=== PATIENT | female | born 1955 | race Caucasian/White ===

== ENCOUNTER 2018-11-13 09:37 | Inpatient (IN) ==
[2018-11-13 10:31] LABS: BASO# 0.07 X1000 (0.0-0.2); EOS# 1.41 X1000 (0.0-0.7); EOS% 19.8 % (0.0-10.0); HEMOGLOBIN 13.4 g/dL (12.0-16.0); LYMPH# 1.67 X1000 (1.2-3.4); LYMPH% 23.4 % (20.5-51.1); MCH 33.4 PG (27-31); MCHC 34.4 g/dL (33-37); MCV 97.3 FL (81-99); MONO# 0.56 X1000 (0.11-0.59); MONO% 7.9 % (1.7-9.3); MPV 9.9 FL (7.4-10.4); NEUT# 3.42 X1000 (1.4-6.5); NEUT% 47.9 % (42.2-75.2); PLT 270 X1000 (130-400); RBC 4.01 XMIL (4.2-5.4); RDW 13.1 % (11.5-14.5); WBC 7.13 X1000 (4.8-10.8)
--- NOTE | 2018-11-13 10:36 | Diag Imaging Result Doc PS360 ---
EXAM: CHEST-1 VIEW HISTORY: Possible sepsis TECHNIQUE: Portable upright chest COMPARISON: None. FINDINGS: The lungs are well expanded. The heart is not enlarged. The vessels are not distended. There are no infiltrates. No effusion identified. Mild scoliosis. IMPRESSION: No pneumonia. Electronically signed by Mati Spencer 11/13/2018 10:34 AM
[2018-11-13] MEDS ORDERED: DUONEB (A & A) INH ONE (10:44)
[2018-11-13] MEDS ORDERED: SOLU-MEDROL IV ONE (10:45)
[2018-11-13 10:46] LABS: INR 0.86; PROTIME 12.4 Seconds (11.0-16.0)
[2018-11-13 10:47] LABS: PTT 30.8 Seconds (22.3-41.8)
[2018-11-13 10:57] LABS: AGAP 15; ALB/GLOB RATIO 1.7; ALBUMIN 4.7 g/dL (3.5-5.0); ALKALINE PHOSPHATASE 74 U/L (32-104); BUN 11 mg/dL (8-22); CHLORIDE 97 mmol/L (98-107); CK PROFILE 152 U/L (24-173); COSMO 271; CREATININE 0.9 mg/dL (0.5-0.9); ESTIMATED GFR > 60; GLUCOSE 132 mg/dL (70-104); GOT 18 U/L (10-30); GPT 17 U/L (10-36); POTASSIUM 4.2 mmol/L (3.5-5.1); SODIUM 135 mmol/L (136-145); TCO2 23 mmol/L (25-35); TOTAL BILIRUBIN 0.46 mg/dL (0.20-1.00); TOTAL PROTEIN 7.4 g/dL (6.3-8.3)
[2018-11-13 11:32] LABS: URINE SOURCE CLEAN CATCH
[2018-11-13 11:41] LABS: BILIRUBIN URINE NEGATIVE (NEGATIVE); BLOOD URINE NEGATIVE (NEGATIVE); COLOR YELLOW; GLUCOSE URINE NEGATIVE (NEGATIVE); KETONE URINE NEGATIVE (NEGATIVE); LEUKOCYTES URINE NEGATIVE (NEGATIVE); NITRITE URINE NEGATIVE (NEGATIVE); PH URINE 5.5; PROTEIN URINE NEGATIVE (NEGATIVE); SP GRAVITY URINE 1.008; TURBIDITY URINE CLEAR (CLEAR); UROBILINOGEN URINE NORMAL (NORMAL)
[2018-11-13 11:43] LABS: UR EPITHELIAL CELLS <10 /HPF (<10); URINE BACTERIA 1+ /HPF; URINE RBC <10 /HPF (<10); URINE WBC <10 /HPF (<10)
--- NOTE | 2018-11-13 12:13 | Diag Imaging Result Doc PS360 ---
EXAM: CT ANGIOGRM PULMONARY ARTERIES HISTORY: sob TECHNIQUE: CT chest with intravenous contrast. Pulmonary arterial protocol with MIP images. COMPARISON: None. FINDINGS: Normal opacification of the pulmonary arteries and their major branches. No thoracic aortic aneurysm or dissection. No cardiomegaly. There calcified mediastinal and hilar lymph nodes with granuloma. No pleural effusions. No consolidation. No bronchiectasis. IMPRESSION: No pulmonary emboli. There is evidence of a prior granulomatous infection. This exam was performed using automated exposure control, adjustment of mA or kV according to patient size, and/or use of iterative reconstruction technique. Electronically signed by Mati Spencer 11/13/2018 12:10 PM
[2018-11-13 13:03] LABS: BLOOD TYPE ARTERIAL; SAMPLE BLOOD
[2018-11-13 13:04] LABS: ALLEN TEST YES; BE -0.7 mmoll (-3.0-3.0); HCO3-(ACT) 24.3 mmoll (20.0-26.0); METHB 1.2 % (0.0-1.5); MODALITY ROOM AIR; O2(CT) 16.7 mL/dL (15.0-23.0); O2HB 92.1 % (95.0-99.0); PCO2(98.6) 36 mmHg (35-45); PO2(98.6) 64 mmHg (60-100); THB 12.9 g/dL (11.5-17.4); pH(98.6) 7.42 (7.35-7.45)
--- NOTE | 2018-11-13 14:49 | EKG Report ---
Test Performed on : 11/13/2018 10:27:58 AM Test Reason : ED. NO EKG ORDER FOR MUSE Blood Pressure : / mmHG Vent. Rate : 097 BPM Atrial Rate : 097 BPM P-R Int : 162 ms QRS Dur : 074 ms QT Int : 356 ms P-R-T Axes : -12 -20 005 degrees QTc Int : 452 ms Normal sinus rhythm. Nonspecific ST abnormality Abnormal ECG No previous ECGs available Unconfirmed Result
--- NOTE | 2018-11-13 15:51 | PROVIDER DOCUMENTATION ---
This chart was entered by Sierra Ribeiro Scribe, acting as scribe for Keenan Arguelles MD. HPI-Respiratory General - General Chief Complaint: SEPSIS ALERT - D Stated Complaint: SOB/WHEEZING Time Seen by Provider: 11/13/18 10:31 Source: patient Allergies/Adverse Reactions: Patient Allergies Allergy/AdvReac Type Severity Reaction Status Date / Time No Known Allergies Allergy Verified 11/13/18 11:20 Home Medications: Home Medication List Medication Instructions Recorded Confirmed Last Taken Type Clonazepam [Klonopin] 0.5 mg PO DAILY 11/13/18 11/13/18 Unknown History Lisinopril/Hydrochlorothiazide 1 ea PO DAILY 11/13/18 11/13/18 Unknown History [Lisinopril-Hctz 10-12.5 mg Tab] Lubiprostone [Amitiza] 8 microgm PO BID 11/13/18 11/13/18 Unknown History Pantoprazole [Protonix] 40 mg PO DAILY 11/13/18 11/13/18 Unknown History Ranitidine HCl [Zantac] 300 mg PO HS 11/13/18 11/13/18 Unknown History - History of Present Illness-Resp Nature of Presenting Problem: Patient is a 62 year old female who presents with shortness of breath, cough, nasal drainage, and wheezing that has been present intermittently for 2 months. Patient states she has had numerous rounds of steroids, antibiotics and breathing treatments. Does not report fever. States history of COPD, HTN and GERD. Quality of Pain: reports: tightness Severity in ED: reports: mild Onset/Duration: reports: other (2 months) Timing: reports: still present, intermittent Cough Quality/Degree: reports: moderate, productive cough, sputum (brown) Associated Symptoms: reports: cough, nasal drainage, shortness of breath, wheezing. denies: fever/chills, lightheadedness Similar Symptoms Previously?: Yes Recently seen or treated by another doctor?: Yes Review of Systems - Adult - REVIEW OF SYSTEMS - ADULT Constitutional: reports: no symptoms reported. denies: chills, fever, fatique Eyes: reports: no symptoms reported Ears, Nose, Mouth & Throat: reports: see HPI, sinus problem (drainage). denies: ear pain, nose pain, throat pain Cardiovascular: reports: no symptoms reported Respiratory: reports: see HPI, cough, shortness of breath, wheezing. denies: hemoptysis Gastrointestinal: reports: no symptoms reported Genitourinary: reports: no symptoms reported Musculoskeletal: reports: no symptoms reported Integumentary: reports: no symptoms reported Neurological: reports: no symptoms reported Psychiatric: reports: no symptoms reported Endocrine: reports: no symptoms reported Hematologic/Lymphatic: reports: no symptoms reported Allergic/Immunologic: reports: no symptoms reported All Other Systems: Reviewed and Negative Past History - Adult - PAST MEDICAL HISTORY-ADULT Review of Records: reports: Old Records Reviewed, Nursing Assessment Review, Med ications Reviewed, Social history reviewed & non-contributory. Major Childhood Illnesses: reports: denies history Cardiovascular: reports: HTN Respiratory: reports: COPD Gastrointestinal: reports: GERD Obstetrical/Gynecological: reports: denies history Genitourinary: reports: denies history Musculoskeletal: reports: denies history Neurological: reports: denies history Psychiatric: reports: denies history Endocrine/Immune: reports: denies history Other Conditions: reports: denies history - PRIOR SURGERIES/PROCEDURES Surgical/Procedure History: reports: reviewed, not pertinent - IMMUNIZATION STATUS Childhood Immunizations: See Nurse Assessment Flu Vaccine: See Nurse Assessment - FAMILY HISTORY Family History: reviewed, not pertinent - SOCIAL HISTORY Smoking: quit less than 1 year, cigarettes Substance Use: denies Living Situation: family Physical Exam-General - PHYSICAL EXAM-ADULT Initial Vital Signs Reviewed: Yes - CONSTITUTIONAL General Appearance: alert, no apparent distress. negative: lethargic - HEAD, EARS, NOSE, MOUTH & THROAT HENMT: moist mucous membranes, maxillary tenderness (bilateral). negative: hearing deficit - NECK Neck: non-tender, normal inspection. negative: lymphadenopathy - RESPIRATORY Respiratory: chest non-tender, wheezing (bilateral). negative: respiratory distress, crackles - CARDIOVASCULAR Cardiovascular: normal peripheral pulses, regular rate, rhythm. negative: tachycardia, systolic murmur - GASTROINTESTINAL (ABDOMEN) Abdominal Exam: normal bowel sounds, non tender, soft. negative: rebound - MUSCULOSKELETAL Extremity: non-tender, normal inspection. negative: deformity - SKIN Integumentary: normal color, normal turgor, warm/dry. negative: ecchymosis, jaundice, rash - NEUROLOGIC Neurologic: grossly normal. negative: aphasia, facial droop - PSYCHIATRIC Psych/Mental Status: normal mood/affect, oriented x 3. negative: anxious Progress - PLAN OF CARE/RESULTS Progress/Plan/Lab Results: Vital Signs - 8 hr 07/10/19 09:38 11/13/18 10:16 11/13/18 10:20 Temperature 97.5 F L Pulse Rate 114 H 99 H Respiratory Rate 30 H 20 Blood Pressure 137/91 O2 Sat by Pulse Oximetry 94 L 91 L 96 11/13/18 10:30 11/13/18 10:40 11/13/18 10:50 Temperature Pulse Rate 97 H 94 H 90 Respiratory Rate 28 H 24 23 Blood Pressure O2 Sat by Pulse Oximetry 98 97 96 11/13/18 10:51 11/13/18 11:00 11/13/18 11:02 Temperature Pulse Rate 91 H 88 86 Respiratory Rate 22 20 22 Blood Pressure 125/94 112/83 O2 Sat by Pulse Oximetry 97 96 96 11/13/18 11:03 11/13/18 11:10 11/13/18 11:40 Temperature Pulse Rate 84 87 83 Respiratory Rate 22 20 29 H Blood Pressure O2 Sat by Pulse Oximetry 96 96 98 11/13/18 11:50 11/13/18 11:54 11/13/18 12:00 Temperature Pulse Rate 92 H 88 93 H Respiratory Rate 22 25 H 18 Blood Pressure 131/86 O2 Sat by Pulse Oximetry 98 100 98 11/13/18 12:02 Temperature Pulse Rate 90 Respiratory Rate 22 Blood Pressure 119/84 O2 Sat by Pulse Oximetry 91 L Laboratory Results - last 24 hr 11/13/18 11/13/18 11/13/18 10:10 10:10 10:10 WBC 7.13 RBC 4.01 L Hgb 13.4 Hct 39.0 MCV 97.3 MCH 33.4 H MCHC 34.4 RDW Std Deviation 13.1 Plt Count 270 MPV 9.9 Immature Gran % (Auto) 0.0 Neut % (Auto) 47.9 Lymph % (Auto) 23.4 Carter % (Auto) 7.9 Eos % (Auto) 19.8 H Baso % (Auto) 1.0 H Immature Gran # (Auto) 0.00 Neut # (Auto) 3.42 Lymph # (Auto) 1.67 Carter # (Auto) 0.56 Eos # (Auto) 1.41 H Baso # (Auto) 0.07 PT 12.4 INR 0.86 PTT (Actin FS) 30.8 Specimen Type Sample Site pH pCO2 pO2 HCO3 Base Excess Oxyhemoglobin ABG O2 Sat (Calculated) ABG O2 Saturation ABG Carboxyhemoglobin ABG Methemoglobin Boy Test A-a O2 Difference Total Hemoglobin Lactate Blood Gas Modality FiO2 % Sodium 135 L Potassium 4.2 Chloride 97 L Carbon Dioxide 23 L Anion Gap 15 BUN 11 Creatinine 0.9 Estimated GFR/1.73 m2 > 60 BUN/Creatinine Ratio 12 Glucose 132 H Calculated Osmolality 271 Calcium 10.0 Total Bilirubin 0.46 AST 18 ALT 17 Alkaline Phosphatase 74 Creatine Kinase 152 Troponin T Total Protein 7.4 Albumin 4.7 Globulin 2.7 Albumin/Globulin Ratio 1.7 Plasma Lactate Urine Source Urine Color Urine Turbidity Urine pH Ur Specific [place] Urine Protein Ur Glucose (Stick) Ur Ketones (Stick) Urine Blood Urine Nitrite Urine Bilirubin Urobilinogen Dipstick Urine Leukocytes Urine WBC (Auto) Urine RBC (Auto) U Epithel Cells (Auto) Urine Bacteria (Auto) 11/13/18 11/13/18 11/13/18 10:10 10:10 11:24 WBC RBC Hgb Hct MCV MCH MCHC RDW Std Deviation Plt Count MPV Immature Gran % (Auto) Neut % (Auto) Lymph % (Auto) Carter % (Auto) Eos % (Auto) Baso % (Auto) Immature Gran # (Auto) Neut # (Auto) Lymph # (Auto) Carter # (Auto) Eos # (Auto) Baso # (Auto) PT INR PTT (Actin FS) Specimen Type Sample Site pH pCO2 pO2 HCO3 Base Excess Oxyhemoglobin ABG O2 Sat (Calculated) ABG O2 Saturation ABG Carboxyhemoglobin ABG Methemoglobin Boy Test A-a O2 Difference Total Hemoglobin Lactate Blood Gas Modality FiO2 % Sodium Potassium Chloride Carbon Dioxide Anion Gap BUN Creatinine Estimated GFR/1.73 m2 BUN/Creatinine Ratio Glucose Calculated Osmolality Calcium Total Bilirubin AST ALT Alkaline Phosphatase Creatine Kinase Troponin T < 0.010 Total Protein Albumin Globulin Albumin/Globulin Ratio Plasma Lactate 1.2 Urine Source CLEAN CATCH Urine Color YELLOW Urine Turbidity CLEAR Urine pH 5.5 Ur Specific [place] 1.008 Urine Protein NEGATIVE Ur Glucose (Stick) NEGATIVE Ur Ketones (Stick) NEGATIVE Urine Blood NEGATIVE Urine Nitrite NEGATIVE Urine Bilirubin NEGATIVE Urobilinogen Dipstick NORMAL Urine Leukocytes NEGATIVE Urine WBC (Auto) <10 Urine RBC (Auto) <10 U Epithel Cells (Auto) <10 Urine Bacteria (Auto) 1+ 11/13/18 13:00 WBC RBC Hgb Hct MCV MCH MCHC RDW Std Deviation Plt Count MPV Immature Gran % (Auto) Neut % (Auto) Lymph % (Auto) Carter % (Auto) Eos % (Auto) Baso % (Auto) Immature Gran # (Auto) Neut # (Auto) Lymph # (Auto) Carter # (Auto) Eos # (Auto) Baso # (Auto) PT INR PTT (Actin FS) Specimen Type ARTERIAL Sample Site R RADIAL pH 7.42 pCO2 36 pO2 64 HCO3 24.3 Base Excess -0.7 Oxyhemoglobin 92.1 L ABG O2 Sat (Calculated) 16.7 ABG O2 Saturation 95.0 ABG Carboxyhemoglobin 1.90 ABG Methemoglobin 1.2 Boy Test YES A-a O2 Difference 41.0 Total Hemoglobin 12.9 Lactate 0.80 Blood Gas Modality ROOM AIR FiO2 % 21.0 Sodium Potassium Chloride Carbon Dioxide Anion Gap BUN Creatinine Estimated GFR/1.73 m2 BUN/Creatinine Ratio Glucose Calculated Osmolality Calcium Total Bilirubin AST ALT Alkaline Phosphatase Creatine Kinase Troponin T Total Protein Albumin Globulin Albumin/Globulin Ratio Plasma Lactate Urine Source Urine Color Urine Turbidity Urine pH Ur Specific [place] Urine Protein Ur Glucose (Stick) Ur Ketones (Stick) Urine Blood Urine Nitrite Urine Bilirubin Urobilinogen Dipstick Urine Leukocytes Urine WBC (Auto) Urine RBC (Auto) U Epithel Cells (Auto) Urine Bacteria (Auto) Orders Category Date Time Status Cardiac Monitoring DIRECTED Care 11/13/18 09:48 Active IV Insertion ORDERED Care 11/13/18 09:48 Completed Notify MD of + Sepsis Screen NOW Care 11/13/18 09:48 Active Notify Physician As Ordered Care 11/13/18 09:48 Active CHEST-1 VIEW [RAD] Stat Exams 11/13/18 09:48 Completed CTA [CT ANGIOGRM PULMONARY ARTERIES] [CT] Stat Exams 11/13/18 10:45 Completed ABG [RESP] Routine Lab 11/13/18 13:00 Completed BLOOD CULTURE [BLDCUL] Stat Lab 11/13/18 10:10 Received CBC WITH DIFF [HEME] Stat Lab 11/13/18 10:10 Completed CK PROFILE [SP CHEM] Stat Lab 11/13/18 10:10 Completed COMPREHENSIVE METABOLIC PANEL [CHEM] Stat Lab 11/13/18 10:10 Completed LACTATE, PLASMA [CHEM] Q3H Lab 11/13/18 10:10 Completed PROTIME WITH INR [COAG] Stat Lab 11/13/18 10:10 Completed PTT [COAG] Stat Lab 11/13/18 10:10 Completed TROPONIN T Stat Lab 11/13/18 10:10 Completed URINALYSIS W/POSS RFLX CULT [URINALYSIS] Stat Lab 11/13/18 11:24 Completed Albuterol 2.5MG/Ipratrop 0.5MG [Duoneb (A & A)] Med 11/13/18 10:44 Discontinued 3 ml INH NOW ONE Methylprednisolone Sod Succ [Solu-Medrol] Med 11/13/18 10:45 Discontinued 125 mg IV NOW ONE Aerosol Treatments Routine Oth 11/13/18 10:45 Active Aerosol Treatments Stat Oth 11/13/18 10:45 Active Oxygen Device Stat Oth 11/13/18 09:48 Active EKG [EKG] Stat Ther 11/13/18 10:27 Draft Result Diagrams: 11/13/18 10:10 11/13/18 10:10 - EKG 1 Time of EKG reading by physician:: 10:27 EKG Read and Signed by:: Keenan Arguelles EKG Interpretation (*Must complete 3 of following elements*): Abnormal Rate: 97 Rhythm: normal sinus rhythm [place]: normal RI Interval: normal Comments: nonspecific ST abnormality. - XRAY 1 XRAY Study: Chest Impression: See EMR Report ( EXAM: CHEST-1 VIEW HISTORY: Possible sepsis TECHNIQUE: Portable upright chest COMPARISON: None. FINDINGS: The lungs are well expanded. The heart is not enlarged. The vessels are not distended. There are no infiltrates. No effusion identified. Mild scoliosis. IMPRESSION: No pneumonia. Electronically signed by Mati Spencer 11/13/2018 10:34 AM 11/13/18 1034 Interpreting Physician: Mati Spencer MD Dictated Date/Time: 11/13/18 1033 cc: Keenan Arguelles MD; Pamela Granda MD) - CT/MRI 1 CT Study: Angiogram Impression: See EMR Report (EXAM: CT ANGIOGRM PULMONARY ARTERIES HISTORY: sob TECHNIQUE: CT chest with intravenous contrast. Pulmonary arterial protocol with MIP images. COMPARISON: None. FINDINGS: Normal opacification of the pulmonary arteries and their major branches. No thoracic aortic aneurysm or dissection. No cardiomegaly. There calcified mediastinal and hilar lymph nodes with granuloma. No pleural effusions. No consolidation. No bronchiectasis. IMPRESSION: No pulmonary emboli. There is evidence of a prior granulomatous infection. This exam was performed using automated exposure control, adjustment of mA or kV according to patient size, and/or use of iterative reconstruction technique. Electronically signed by Mati Spencer 11/13/2018 12:10 PM 11/13/18 1210 Interpreting Physician: Mati Spencer MD Dictated Date/Time: 11/13/18 1207 cc: Keenan Arguelles MD; Pamela Granda MD) - CONSULTS/PCP/HOSPITALIST Notification #1 *Consult/PCP/Hospitalist*: ALEX Haddad for Hospitalist Time Discussed: 15:46 Reason/Comments: Dr. Arguelles consulted with Catie about patient. Consult Disposition: Will see in ED, Admit Departure - Departure Date of Disposition Decision: 11/13/18 Time of Disposition Decision: 15:46 DIAGNOSIS: COPD exacerbation Disposition: ADMITTED INPATIENT 09 Certified Medical Emergency: Emergent Condition: Fair Referrals and Follow-Ups: Pamela Granda MD [Primary Care Provider] - - Critical Care Note This patient required my direct & personal management of CC.: No Attestation - Physician/ GULSHAN Attestation Patient care was provided by Advanced Practice Provider:: No The physician spent face to face time with patient:: Yes Advanced Practice Provider documentation review:: Supervising physician onsite and consulted in the evaluation and care of this patient. The physician did have a face to face encounter with the patient. This chart was documented by the indicated scribe, (Sierra Ribeiro Scribe) and accurately reflects the services I performed and decisions made by , Keenan Arguelles MD, as attested by the provider's signature.
[2018-11-13] MEDS ORDERED: TYLENOL PO PRN (16:00)
[2018-11-13] MEDS ORDERED: DUONEB (A & A) INH PRN (16:01)
[2018-11-13 17:14] LABS: BASO# 0.02 X1000 (0.0-0.2); BASO% 0.3 % (0.0-0.8); EOS# 0.02 X1000 (0.0-0.7); EOS% 0.3 % (0.0-10.0); HEMATOCRIT 40.7 % (37.0-47.0); HEMOGLOBIN 13.9 g/dL (12.0-16.0); IMM GRAN# 0.02 X1000 (0.0-0.04); IMM GRAN% 0.3 % (0.0-0.5); LYMPH# 0.47 X1000 (1.2-3.4); LYMPH% 6.5 % (20.5-51.1); MCHC 34.2 g/dL (33-37); MCV 96.7 FL (81-99); MONO# 0.05 X1000 (0.11-0.59); MONO% 0.7 % (1.7-9.3); MPV 9.8 FL (7.4-10.4); NEUT# 6.69 X1000 (1.4-6.5); NEUT% 91.9 % (42.2-75.2); PLT 289 X1000 (130-400); RBC 4.21 XMIL (4.2-5.4); RDW 13.1 % (11.5-14.5); WBC 7.27 X1000 (4.8-10.8)
[2018-11-13 17:33] LABS: LYMPHS 6 % (21-51); MONO 1 % (1-9); SEGS 93 % (42-75)
[2018-11-13 17:34] LABS: AGAP 17; ALB/GLOB RATIO 1.7; ALBUMIN 4.9 g/dL (3.5-5.0); ALKALINE PHOSPHATASE 75 U/L (32-104); BUN 11 mg/dL (8-22); CHLORIDE 94 mmol/L (98-107); COSMO 270; CREATININE 0.7 mg/dL (0.5-0.9); ESTIMATED GFR > 60; GLUCOSE 166 mg/dL (70-104); GOT 18 U/L (10-30); GPT 17 U/L (10-36); POTASSIUM 3.4 mmol/L (3.5-5.1); SODIUM 133 mmol/L (136-145); TCO2 22 mmol/L (25-35); TOTAL BILIRUBIN 0.38 mg/dL (0.20-1.00); TOTAL PROTEIN 7.8 g/dL (6.3-8.3)
[2018-11-13] MEDS: ZITHROMAX PO SCH (18:34)
[2018-11-13] MEDS: ROCEPHIN 1 GM in NS 50 ML IV SCH (18:35)
[2018-11-13] MEDS: DUONEB (A & A) INH SCH ×2 (19:31→22:26)
[2018-11-13] MEDS: SOLU-MEDROL IV SCH (22:08)
[2018-11-13] MEDS: ROBITUSSIN-AC PO PRN (22:08)
[2018-11-13] MEDS: KLONOPIN PO SCH (22:08)
[2018-11-13] MEDS: ZANTAC PO SCH (22:08)
--- NOTE | 2018-11-13 22:30 | HISTORY AND PHYSICAL ---
CHIEF COMPLAINT: Shortness of breath, headache, chest congestion, fever. HISTORY OF PRESENT ILLNESS: This is a 62-year-old female with a history of COPD, gastroesophageal reflux disease, hypertension and noncompliance. She presents to the emergency room complaining of about 3 months of wheezing, cough, congestion, shortness of breath, just generalized weakness, intermittent fevers and chills. She states that [place] time she was given steroids, sometimes antibiotics and told she would need to follow up her regular physician. She has only once in this time followed up with the same physician twice. She denied any chest pain or palpitations, any syncope. PAST MEDICAL HISTORY: 1. Chronic obstructive pulmonary disease. 2. Hypertension. 3. Gastroesophageal reflux disease. PAST SURGICAL HISTORY: 1. Bilateral rotator cuff. 2. Left elbow surgery. SOCIAL HISTORY: She smokes about a pack a day. She drinks alcohol occasionally. She denies illicit drug use. ALLERGIES: No known drug allergies. HOME MEDICATIONS: A list will be obtained by the nursing staff and once verified we will review restart as appropriate. REVIEW OF SYSTEMS: Discussed with patient with pertinent positives stated in the HPI. She denied any syncope, dizziness, any chest pain or palpitations, a productive cough, any chills, night sweats, any PND, orthopnea, nausea, vomiting, diarrhea, constipation, black or bloody vomitus or stools, hematuria, dysuria, frequency or urgency. PHYSICAL EXAMINATION: GENERAL: This is a 62-year-old female who is sitting up in the stretcher in the emergency room in no distress. VITAL SIGNS: Blood pressure is 119/84 with a heart rate of 90, respirations 20, temperature is 97.8 degrees with O2 saturations 96 to 98 percent. EYES: Pupils equal, round, react to light. EOMs are intact. Sclerae are anicteric. HEENT: Head is normocephalic, atraumatic. Mucous membranes are moist. NECK: Supple with trachea midline. CARDIOVASCULAR: Regular rate and rhythm. S1 and S2 appreciated. She has no lower extremity edema. Calves are nontender bilateral with peripheral pulses palpable x4 extremities. PULMONARY: Breath sounds with inspiratory and expiratory wheezes as well as rhonchi that do not clear to cough. Scattered throughout. Chest rises and falls symmetric with respiration. Chest wall is nontender to palpation. GASTROINTESTINAL: Abdomen is soft, nontender, nondistended. Bowel sounds in all 4 quadrants. GENITOURINARY: She has no CVA or suprapubic tenderness. NEUROLOGIC: She is alert and oriented x3. SKIN: Warm and dry. LABORATORY DATA: WBC is 7.1 with hemoglobin 13.4, hematocrit 39 and platelets 270,000. Sodium is 135, potassium 4.2, BUN 11, creatinine 0.9 with a glucose of 132. Troponin is negative urinalysis is essentially negative. INR is 0.86. ABGs on room air reveals a pH of 7.42 with pCO2 of 36, PO2 of 64, bicarb of 24.3. Chest x-ray reveals no pneumonia. Lungs are well expanded. Heart is not enlarged. Vessels are not distended. There are no infiltrates. No effusion identified. Pulmonary arteriogram reveals no pulmonary emboli. There is evidence of a prior granulomatous infection. ASSESSMENT AND PLAN: 1. Chronic obstructive pulmonary disease, acute on chronic exacerbation. Failed outpatient treatment. We will get a sputum culture. Blood cultures have been drawn in the emergency room. We will start Rocephin and azithromycin for antibiotic coverage and any further antibiotics will be culture driven. Start DuoNeb q.4 hours and q.2 hours p.r.n. steroids to taper incentive spirometer every 4 hours. We will repeat labs in the morning. 2. For deep vein thrombosis prophylaxis will use sequential compression devices. 3. For gastrointestinal prophylaxis Prilosec. 4. For hypertension, we will identify her home medications and continue. 5. Further treatments pending hospital course. Discussed with Dr Goldstein Patient seen and examined by me face to face, all the laboratory, vitals signs and images were reviewed, patient presented to the emergency department complaining of , my physical exam showed , patient will be admitted to the medical floor with telemetry, we will monitor this patient closely, I agree with the REGULATORY AFFAIRS MANAGER's assessment ans plan, Gray Barr MD. Dictated by ALEX Evnas for Gray Krishna MD cc: ALEX Evans MD [facility]
[2018-11-14] MEDS: ROBITUSSIN-AC PO PRN ×4 (02:10→21:54)
[2018-11-14] MEDS: DUONEB (A & A) INH SCH ×6 (03:48→23:13)
[2018-11-14] MEDS: AMITIZA PO SCH ×3 (04:37→21:44)
[2018-11-14] MEDS: SOLU-MEDROL IV SCH ×3 (06:54→21:44)
[2018-11-14] MEDS ORDERED: PROTONIX PO SCH (09:00)
[2018-11-14] MEDS ORDERED: KLONOPIN PO SCH (09:00)
[2018-11-14] MEDS: ZITHROMAX PO SCH (09:23)
[2018-11-14] MEDS: PRINZIDE 10/12.5MG PO SCH (09:24)
[2018-11-14] MEDS: KLONOPIN PO SCH ×2 (09:36→21:50)
[2018-11-14 12:39] LABS: AGAP 18; BUN 11 mg/dL (8-22); CALCIUM 10.3 mg/dL (8.8-10.2); CHLORIDE 97 mmol/L (98-107); COSMO 272; CREATININE 0.9 mg/dL (0.5-0.9); ESTIMATED GFR > 60; GLUCOSE 152 mg/dL (70-104); POTASSIUM 3.8 mmol/L (3.5-5.1); SODIUM 135 mmol/L (136-145); TCO2 20 mmol/L (25-35)
[2018-11-14] MEDS: ROCEPHIN 1 GM in NS 50 ML IV SCH (17:05)
--- NOTE | 2018-11-14 18:05 | PROGRESS NOTE ---
DATE: 11/14/2018 SUBJECTIVE: This patient seems to be doing better. She is still complaining of shortness of breath. She is still having wheezing. For now we will continue with the same, monitoring. Likely this patient will be discharged in the next 48 to 72 hours. OBJECTIVE: Vital Signs: Temperature 98.3 degrees, pulse 114, respiratory rate 15, blood pressure 138/81, oxygen saturation 98 on 2 L of nasal cannula. HEENT: Head normocephalic. No trauma. PERRLA. Neck: Supple. No JVD. No masses. Central trachea. Chest: Decreased breath sounds mostly at the bases with prolonged expiratory phase and expiratory wheezing. Abdomen: Soft, nontender, nondistended. No hepatosplenomegaly. Extremities: No edema. No clubbing. No cyanosis. Neurological: The patient is alert. She is oriented x3. No focal deficits. LABORATORY: Sodium 135, potassium 3.8, chloride 97, bicarbonate 20, BUN 11, creatinine 0.9, glucose 152, calcium 10.3. ASSESSMENT AND PLAN: 1. Chronic obstructive pulmonary disease exacerbation, failed outpatient treatment. So far sputum culture and blood culture are negative. We will continue with the same management today and tomorrow hopefully we are going to be able to decrease the dose of the steroids. Continue with antibiotics and breathing treatment and oxygen supplementation. 2. Hypertension. Continue with same management. 3. Gastrointestinal prophylaxis with ranitidine. 4. Deep vein thrombosis prophylaxis with SCDs. 5. Hypokalemia, resolved. 6. Hyperglycemia. Probably due to steroids, but I will get a hemoglobin A1c to rule out diabetes. cc: Gray Krishna MD
[2018-11-14] MEDS: ZANTAC PO SCH (21:44)
[2018-11-15] MEDS: DUONEB (A & A) INH SCH ×6 (03:38→23:19)
[2018-11-15] MEDS: SOLU-MEDROL IV SCH ×2 (05:26→18:32)
[2018-11-15 08:22] LABS: HEMOGLOBIN A1C 5.8 % (4.8-6.0)
[2018-11-15 08:24] LABS: HEMATOCRIT 36.9 % (37.0-47.0); HEMOGLOBIN 12.6 g/dL (12.0-16.0); IMM GRAN# 0.03 X1000 (0.0-0.04); IMM GRAN% 0.2 % (0.0-0.5); LYMPH# 0.58 X1000 (1.2-3.4); MCH 33.5 PG (27-31); MCHC 34.1 g/dL (33-37); MCV 98.1 FL (81-99); MONO# 0.82 X1000 (0.11-0.59); MONO% 5.6 % (1.7-9.3); MPV 9.8 FL (7.4-10.4); NEUT# 13.13 X1000 (1.4-6.5); NEUT% 90.2 % (42.2-75.2); PLT 319 X1000 (130-400); RBC 3.76 XMIL (4.2-5.4); RDW 13.9 % (11.5-14.5); WBC 14.56 X1000 (4.8-10.8)
[2018-11-15 08:40] LABS: AGAP 15; BUN 13 mg/dL (8-22); CHLORIDE 97 mmol/L (98-107); COSMO 274; CREATININE 0.8 mg/dL (0.5-0.9); ESTIMATED GFR > 60; GLUCOSE 138 mg/dL (70-104); POTASSIUM 4.4 mmol/L (3.5-5.1); SODIUM 136 mmol/L (136-145); TCO2 24 mmol/L (25-35)
[2018-11-15] MEDS: PRINZIDE 10/12.5MG PO SCH (08:48)
[2018-11-15] MEDS: ZITHROMAX PO SCH (08:48)
[2018-11-15] MEDS: AMITIZA PO SCH ×3 (08:49→20:39)
[2018-11-15] MEDS: KLONOPIN PO SCH ×2 (08:49→20:39)
[2018-11-15 08:52] LABS: BANDS 1 % (0-1); LYMPHS 6 % (21-51); MONO 1 % (1-9); SEGS 92 % (42-75)
[2018-11-15] MEDS: ROBITUSSIN-AC PO PRN (18:31)
[2018-11-15] MEDS: ROCEPHIN 1 GM in NS 50 ML IV SCH (18:33)
[2018-11-15] MEDS: SYMBICORT 160/4.5 MICROGM INHALER INH SCH (20:14)
[2018-11-15] MEDS: ZANTAC PO SCH (20:39)
--- NOTE | 2018-11-15 20:42 | PROGRESS NOTE ---
DATE: 11/15/2018 SUBJECTIVE: This patient seems to be doing better today. She is still complaining of shortness of breath. She is having some wheezing. I will decrease the dose of the steroids today from 3 times a day to twice a day, and hopefully I will be able to discharge this patient in the next 48 hours. OBJECTIVE: Vital Signs: Temperature 98 degrees, pulse 115, respiratory rate 18, blood pressure 113/75, oxygen saturation 96% on 2 L of nasal cannula. HEENT: Head normocephalic. No trauma. PERRLA. Neck: Supple. No JVD. No masses. Central trachea. Chest: Decreased breath sounds mostly at the bases with prolonged expiratory phase and expiratory wheezing. Abdomen: Soft, nontender, nondistended. No hepatosplenomegaly. Extremities: No edema, no clubbing, no cyanosis. Neurological Examination: The patient is alert. She is oriented x3. No focal deficits LABORATORY DATA: WBC 14.5, hemoglobin 12.6, hematocrit 36.9, platelets 319,000, sodium 136, potassium 4.4, chloride 97, bicarbonate 24, BUN 13, creatinine 0.8, glucose 138, calcium 10. Hemoglobin A1c 5.8. ASSESSMENT AND PLAN: 1. Chronic obstructive pulmonary disease exacerbation, failed outpatient treatment. So far, his sputum culture and blood culture are negative. We will continue with the same management. I will add Symbicort to her medications, and I will decrease the dose of the IV steroids. I think she is getting better. 2. Hypertension. Continue with same management. 3. Gastrointestinal prophylaxis with ranitidine. 4. Deep vein thrombosis prophylaxis with sequential compression devices. 5. Hypokalemia, resolved. 6. Hyperglycemia, hemoglobin A1c 5.8. We will just monitor the CT. cc: Gray Krishna MD
[2018-11-16] MEDS: SOLU-MEDROL IV SCH ×2 (04:19→17:30)
[2018-11-16] MEDS: DUONEB (A & A) INH SCH ×6 (04:32→23:16)
[2018-11-16 08:17] LABS: HEMATOCRIT 36.4 % (37.0-47.0); HEMOGLOBIN 12.3 g/dL (12.0-16.0); IMM GRAN# 0.04 X1000 (0.0-0.04); IMM GRAN% 0.3 % (0.0-0.5); LYMPH# 0.71 X1000 (1.2-3.4); LYMPH% 5.8 % (20.5-51.1); MCH 33.2 PG (27-31); MCHC 33.8 g/dL (33-37); MCV 98.4 FL (81-99); MONO% 3.2 % (1.7-9.3); MPV 9.7 FL (7.4-10.4); NEUT# 11.19 X1000 (1.4-6.5); NEUT% 90.7 % (42.2-75.2); PLT 311 X1000 (130-400); RDW 13.9 % (11.5-14.5); WBC 12.34 X1000 (4.8-10.8)
[2018-11-16 08:33] LABS: AGAP 14; BUN 16 mg/dL (8-22); CALCIUM 9.7 mg/dL (8.8-10.2); CHLORIDE 97 mmol/L (98-107); COSMO 273; CREATININE 0.9 mg/dL (0.5-0.9); ESTIMATED GFR > 60; GLUCOSE 166 mg/dL (70-104); POTASSIUM 4.4 mmol/L (3.5-5.1); SODIUM 134 mmol/L (136-145); TCO2 23 mmol/L (25-35)
[2018-11-16] MEDS: SYMBICORT 160/4.5 MICROGM INHALER INH SCH ×2 (08:34→19:13)
[2018-11-16 09:17] LABS: ANISOCYTOSIS 2+; LYMPHS 6 % (21-51); MONO 3 % (1-9); SEGS 91 % (42-75)
[2018-11-16] MEDS: ZITHROMAX PO SCH (10:42)
[2018-11-16] MEDS: AMITIZA PO SCH ×2 (10:42→20:22)
[2018-11-16] MEDS: PRINZIDE 10/12.5MG PO SCH (10:42)
--- NOTE | 2018-11-16 12:43 | PROGRESS NOTE ---
DATE: 11/16/2018 SUBJECTIVE: This patient seems to be doing a little bit better on a daily basis. We will continue with the same management. She is still having some wheezing but they are better. I will try to discharge this patient in the next 24-48 hours. We will continue to monitor. OBJECTIVE: Vital Signs: Temperature 97.8, pulse 91, respiratory rate 20, blood pressure 132/79, oxygen saturation 100% on 3 L of nasal cannula. HEENT: Head normocephalic. No trauma. PERRLA. Neck: Supple. No JVD. No masses. Central trachea. Chest: Decreased breath sounds mostly at the bases with prolonged expiratory phase and expiratory wheezing, which is better now. Abdomen: Soft, nontender, nondistended. No hepatosplenomegaly. Extremities: No edema, no clubbing, no cyanosis. Neurological: The patient today is alert. She is oriented x3. No focal deficit. LABORATORY: WBC 12.3, hemoglobin 12.3, hematocrit 36.4, platelet 211. Sodium 134, potassium 4.4, chloride 97, bicarbonate 23, BUN 16, creatinine 0.9, glucose 166, calcium 9.7. ASSESSMENT AND PLAN: 1. Chronic obstructive pulmonary disease exacerbation, failed outpatient treatment, so far her sputum culture and blood culture are negative. Will continue with the same management. I added Symbicort yesterday to her medications, and I will continue with same dose of steroids tomorrow. Hopefully, I will switch it to p.o. in the morning. 2. Hypertension. Continue with same management. 3. Gastrointestinal prophylaxis with ranitidine. 4. Deep venous thrombosis prophylaxis with sequential compression devices. 5. Hypokalemia resolved. 6. Hyperglycemia. Hemoglobin A1c is 5.8. We will just monitor. Her blood pressure has been stable. She uses clonidine every 8 hours at home. I do not believe we need to restart this medication at this moment. cc: Gray Krishna MD
[2018-11-16] MEDS: ROCEPHIN 1 GM in NS 50 ML IV SCH (17:29)
[2018-11-16] MEDS: ROBITUSSIN-AC PO PRN (17:29)
[2018-11-16] MEDS: ZANTAC PO SCH (20:22)
[2018-11-16] MEDS: KLONOPIN PO SCH (20:23)
[2018-11-17] MEDS: DUONEB (A & A) INH SCH ×6 (03:20→22:38)
[2018-11-17] MEDS: SOLU-MEDROL IV SCH (04:28)
[2018-11-17] MEDS: SYMBICORT 160/4.5 MICROGM INHALER INH SCH ×2 (08:06→19:39)
[2018-11-17 08:09] LABS: BASO# 0.01 X1000 (0.0-0.2); BASO% 0.1 % (0.0-0.8); HEMATOCRIT 38.1 % (37.0-47.0); HEMOGLOBIN 12.9 g/dL (12.0-16.0); IMM GRAN# 0.06 X1000 (0.0-0.04); IMM GRAN% 0.7 % (0.0-0.5); LYMPH# 0.87 X1000 (1.2-3.4); LYMPH% 10.2 % (20.5-51.1); MCH 33.8 PG (27-31); MCHC 33.9 g/dL (33-37); MCV 99.7 FL (81-99); MONO# 0.39 X1000 (0.11-0.59); MONO% 4.6 % (1.7-9.3); MPV 9.4 FL (7.4-10.4); NEUT# 7.22 X1000 (1.4-6.5); NEUT% 84.4 % (42.2-75.2); PLT 319 X1000 (130-400); RBC 3.82 XMIL (4.2-5.4); RDW 13.7 % (11.5-14.5); WBC 8.55 X1000 (4.8-10.8)
[2018-11-17 08:28] LABS: AGAP 14; BUN 15 mg/dL (8-22); CALCIUM 9.7 mg/dL (8.8-10.2); CHLORIDE 97 mmol/L (98-107); COSMO 275; CREATININE 0.7 mg/dL (0.5-0.9); ESTIMATED GFR > 60; GLUCOSE 103 mg/dL (70-104); POTASSIUM 4.4 mmol/L (3.5-5.1); SODIUM 137 mmol/L (136-145); TCO2 26 mmol/L (25-35)
[2018-11-17] MEDS: PRINZIDE 10/12.5MG PO SCH (09:47)
[2018-11-17] MEDS: ZITHROMAX PO SCH (09:47)
[2018-11-17] MEDS: AMITIZA PO SCH ×2 (09:48→21:04)
--- NOTE | 2018-11-17 14:38 | PROGRESS NOTE ---
DATE: 11/17/2018 SUBJECTIVE: This patient is doing better today. I will stop the IV med methylprednisolone 60 mg twice a day and I will put her on once a day 40 mg. I will ask for home O2 evaluation in the morning. I believe she can be discharged in the next 24 hours. I did stop completely her clonidine because her blood pressure has been good and apparently she started taking that long time ago when she was trying to get rid off narcotics, so her doctor prescribed that medication. As per the patient she has been having low blood pressure and she has been having syncope, because of that, so I will stop it completely. OBJECTIVE: Vital Signs: Temperature 98.3 degrees, pulse 99 respiratory rate 16, blood pressure 109/70, oxygen saturation 98 on 2 L of nasal cannula. HEENT: Head normocephalic no trauma. PERRLA. Neck: Supple. No JVD. No masses. Central trachea. Chest: Decreased breath sounds mostly at the bases. Prolonged expiratory phase and end faint expiratory wheezing. Abdomen: Soft, nontender, nondistended. No hepatosplenomegaly. Extremities: No edema no clubbing no cyanosis. Neurological: The patient is alert she is oriented x3. No focal deficits. LABORATORY: WBC 8.5, hemoglobin 12.9, hematocrit 38.1, platelets 319,000. Sodium 137 potassium 4.4, chloride 97, bicarbonate 26, BUN 15, creatinine 0.7, glucose 103, calcium 9.7. ASSESSMENT AND PLAN: 1. Chronic obstructive pulmonary disease exacerbation, failed outpatient treatment. Sputum culture and blood culture negative. We will continue with same management except that will decrease the dose of the steroids, hopefully this patient can be discharged tomorrow. I will ask for home O2 evaluation. 2. Hypertension. Actually she is only on lisinopril/hydrochlorothiazide and she has been doing good. I have stopped completely the clonidine. I do not think she needs it. 3. Gastrointestinal prophylaxis with ranitidine. 4. Deep vein thrombosis prophylaxis with sequential compression devices. 5. Hypokalemia resolved. 6. Hyperglycemia likely due to steroids, hemoglobin A1c 5.8. 7. Overall, this patient is doing better. She is still getting short of breath mostly when she walks to the bathroom or a few steps. I feel that she can be discharged tomorrow with a follow-up but a by a printed circuit board assembly repairer. cc: Gray Krishna MD
[2018-11-17] MEDS: ROCEPHIN 1 GM in NS 50 ML IV SCH (17:49)
[2018-11-17] MEDS: ROBITUSSIN-AC PO PRN (20:58)
[2018-11-17] MEDS: ZANTAC PO SCH (21:04)
[2018-11-17] MEDS: KLONOPIN PO SCH (21:04)
[2018-11-18] MEDS: ROBITUSSIN-AC PO PRN (03:08)
[2018-11-18] MEDS: DUONEB (A & A) INH SCH ×2 (03:29→07:33)
[2018-11-18] MEDS: SYMBICORT 160/4.5 MICROGM INHALER INH SCH (07:33)
[2018-11-18 08:03] LABS: AGAP 11; BUN 17 mg/dL (8-22); CALCIUM 8.4 mg/dL (8.8-10.2); CHLORIDE 101 mmol/L (98-107); COSMO 279; CREATININE 0.8 mg/dL (0.5-0.9); ESTIMATED GFR > 60; GLUCOSE 92 mg/dL (70-104); POTASSIUM 4.2 mmol/L (3.5-5.1); SODIUM 139 mmol/L (136-145); TCO2 27 mmol/L (25-35)
[2018-11-18] MEDS ORDERED: SOLU-MEDROL IV SCH (09:00)
[2018-11-18] MEDS: ZITHROMAX PO SCH (09:37)
[2018-11-18] MEDS: AMITIZA PO SCH (09:37)
[2018-11-18] MEDS: PRINZIDE 10/12.5MG PO SCH (09:37)
[2018-11-18 11:57] VITALS: BP 101/75
--- NOTE | 2018-11-19 12:24 | DISCHARGE SUMMARY ---
ADMISSION DATE: 11/13/2018 DISCHARGE DATE: 11/18/2018 DISCHARGE DIAGNOSES: 1. Chronic obstructive pulmonary disease exacerbation. 2. Bronchitis. 3. Hypertension. 4. Hypokalemia, resolved. PROCEDURES PERFORMED: 1. Chest x-ray dated 11/13/2018. Impression: No pneumonia. 2. Pulmonary arteriogram dated 11/13/2018. Impression: No pulmonary emboli. There is evidence of a prior granulomatosis infection. HOSPITAL COURSE: A 62-year-old female with a past medical history of COPD, GERD, hypertension, and noncompliance presented to the emergency department and was admitted on 11/13/2018, complaining of 2 to 3 months of wheezing, cough, congestion, shortness of breath, generalized weakness, intermittent fever and chills. As per the patient she has been at numerous urgent cares locally. She had received steroids, antibiotics, and told that she would need to follow up by her regular physician. She was admitted. She was placed on antibiotics, breathing treatment, oxygen supplementation. The patient was improving on a daily basis, and we have been decreasing the dose of the steroids on a daily basis as well. She has been placed on antibiotics. Likely, she has bronchitis. She was having some yellowish phlegm coming out from her lungs. As per the patient, she is using a Trilogy machine at home, but she has never been really on a treatment for her COPD or using a BiPAP machine before. I will discharge this patient today. She is feeling much better. She is able to walk. She is eating by herself without any kind of problem. I did a home O2 evaluation to see if she needs oxygen, and after physical activity, her oxygen saturation did not drop below 90. I want her to be seen by a inside sales supervisor as an outpatient, and we already set up the appointment. DISCHARGE PHYSICAL EXAMINATION: Vital signs: Temperature 98.6 degrees, pulse 89, respiratory rate 16, blood pressure 101/75, oxygen saturation 96 on room air HEENT: Head normocephalic, no trauma. PERRLA. Neck: Supple. No JVD. No masses. Central trachea. Chest: Decreased breath sounds mostly at the bases. Prolonged expiratory phase. No wheezing. Abdomen: Soft, nontender, nondistended. No hepatosplenomegaly. Extremities: No edema, no clubbing, no cyanosis. Neurological: The patient is alert. She is oriented. No focal deficits. LABORATORY: Sodium 139, potassium 4.2, chloride 101, bicarbonate 27, BUN 17, creatinine 0.8, glucose 92, calcium 8.4. DISCHARGE MEDICATIONS: 1. Ventolin HFA 2 puff inhaler q.6 h. as needed. 2. Symbicort 160/4.5 mcg inhaler 2 puff inhaled twice a day. 3. Cefdinir 300 mg p.o. b.i.d. 4. Clonazepam 1 mg p.o. at bedtime. 5. Atrovent HFA 2 puff inhaler 4 times a day. 6. Lisinopril/hydrochlorothiazide 10/12.5 mg tablet daily. 7. Amitiza 8 mcg p.o. b.i.d. 8. Medrol Dosepak 4 mg p.o. as directed. 9. Ranitidine 300 mg p.o. at bedtime. COORDINATION TIME: Time discharging this patient 35 minutes. cc: Gray Krishna MD
== END 2018-11-18 14:04 | disposition home or self-care (01) | DRG 192 ==
LOC: ED 09:37 → 3N 16:49
PROVIDERS: ATTEND Internal Medicine
CPT/HCPCS: 71010; 71045; 71275; 80048; 80053; 81001; 82550; 82805; 83036; 83605; 84484; 85025; 85610; 85730; 87040; 87070; 87205; 93005; 94640; 94760; 94761; 96374; 99285; A9270; J0696; J2920; J2930; Q9967

== ENCOUNTER 2019-08-04 12:15 | Inpatient (IN) ==
--- NOTE | 2019-08-04 14:07 | PROVIDER DOCUMENTATION ---
HPI-General Adult - General Chief Complaint: Shortness of Breath Stated Complaint: Cough, Dyspnea, Wheezing Time Seen by Provider: 08/04/19 13:06 Source: patient Allergies/Adverse Reactions: Patient Allergies Allergy/AdvReac Type Severity Reaction Status Date / Time No Known Allergies Allergy Verified 08/04/19 16:24 Home Medications: Home Medication List Medication Instructions Recorded Confirmed Last Taken Type Lisinopril/Hydrochlorothiazide 1 ea PO DAILY 11/13/18 08/04/19 08/04/19 08:00 History [Lisinopril-Hctz 10-12.5 mg Tab] Lubiprostone [Amitiza] 8 microgm PO BID 11/13/18 08/04/19 08/04/19 08:00 History Ranitidine HCl [Zantac] 300 mg PO HS 11/13/18 08/04/19 08/04/19 08:00 History Albuterol Sulfate Inhaler 2 puff INH Q6H PRN PRN #1 inhaler 11/18/18 08/04/19 08/04/19 08:00 Rx [Ventolin Hfa] Budesonide/Formoterol Inhaler 2 puff INH RTBID #1 inhaler 11/18/18 08/04/19 08/04/19 08:00 Rx [Symbicort 160/4.5 Microgm Inhaler] Clonazepam [Klonopin] 1 mg PO HS #20 tab 11/18/18 08/04/19 08/04/19 08:00 Rx Ipratropium [place] Inhaler 2 puff INH [id number] #1 inhaler 11/18/18 08/04/19 08/04/19 08:00 Rx [Atrovent Hfa] Famotidine 20 mg PO BID 08/04/19 08/04/19 08/04/19 08:00 History Montelukast [Singulair] 10 mg PO DAILY 08/04/19 08/04/19 08/04/19 08:00 History Trazodone [Desyrel] 100 mg PO BID 08/04/19 08/04/19 08/04/19 08:00 History - History of Present Illness -Gen Adult Nature of Presenting Problems: [id number] presents with c/o cough, congestion with yellow sputum production, wheezing, dyspnea, orthopnea, and PND for greater than a month. Patient has been seeing her PCP ALEX Pacheco and has been on antibiotics and prednisone but continues to have increasing sypmtoms. Patient states her PCP recommended she come to the ER for further treatment. Patient denies any fever, chills or flu-like symptoms. Patient does have a audible wheeze noted. O2sat 97% on room air. Location of Pain/Injury: reports: none Pain Radiation: reports: no radiation Quality of Pain: reports: none Onset/Duration: reports: other (1month ago) Timing: reports: still present Context/Activities at Onset: reports: none Modifying Factors: improves with: nothing Associated Symptoms: reports: sinus congestion/drainage (coughing up yellow sputum production), shortness of breath Similar Symptoms Previously?: Yes Recently seen or treated by another doctor?: Yes (seen by Tristen Lawrence) Review of Systems - Adult - REVIEW OF SYSTEMS - ADULT Constitutional: denies: chills, fever Eyes: reports: no symptoms reported. denies: decreased vision, blurred vision Ears, Nose, Mouth & Throat: reports: no symptoms reported. denies: throat pain, throat swelling Cardiovascular: reports: orthopnea, PND. denies: chest pain Respiratory: reports: cough, dyspnea on exertion, shortness of breath, wheezing Gastrointestinal: reports: no symptoms reported. denies: diarrhea, nausea, vomiting Genitourinary: reports: no symptoms reported. denies: dysuria, flank pain Musculoskeletal: reports: no symptoms reported. denies: bone pain, back pain Integumentary: reports: no symptoms reported. denies: itching Neurological: reports: no symptoms reported. denies: ataxia, loss of balance Psychiatric: reports: no symptoms reported. denies: anxiety Endocrine: reports: no symptoms reported Hematologic/Lymphatic: reports: no symptoms reported. denies: blood clots Allergic/Immunologic: reports: no symptoms reported. denies: asthma All Other Systems: Reviewed and Negative Past History - Adult - PAST MEDICAL HISTORY-ADULT Review of Records: reports: Old Records Reviewed, Nursing Assessment Review, Medications Reviewed, Social history reviewed & non-contributory. Major Childhood Illnesses: reports: denies history Cardiovascular: reports: HTN Respiratory: reports: bronchitis, COPD, pneumonia Gastrointestinal: reports: denies history Obstetrical/Gynecological: reports: denies history Genitourinary: reports: denies history Musculoskeletal: reports: denies history Neurological: reports: denies history Psychiatric: reports: denies history Endocrine/Immune: reports: denies history Other Conditions: reports: denies history - IMMUNIZATION STATUS Childhood Immunizations: See Nurse Assessment Flu Vaccine: See Nurse Assessment - FAMILY HISTORY Family History: reviewed, not pertinent - SOCIAL HISTORY Smoking: quit less than 1 year Provider spent 3-5 mins advising pt. on dangers of tobacco.: Discussed manners to quit use, and f/u contacts for add'l counseling. Substance Use: denies Alcohol Use Frequency: never Physical Exam-General - PHYSICAL EXAM-ADULT Initial Vital Signs Reviewed: Yes - CONSTITUTIONAL General Appearance: alert, mild distress - EYES Eyes: PERRL/EOMI, pale conjunctivae - HEAD, EARS, NOSE, MOUTH & THROAT HENMT: normocephalic/atraumatic, moist mucous membranes, normal ENT inspection - NECK Neck: non-tender, full range of motion, normal inspection - RESPIRATORY Respiratory: chest non-tender, respiratory distress, accessory muscle use, wh eezing - CARDIOVASCULAR Cardiovascular: regular rate, rhythm, no edema, no gallop - GASTROINTESTINAL (ABDOMEN) Abdominal Exam: normal bowel sounds, non tender, soft - MUSCULOSKELETAL Back Exam: normal inspection, no CVA tenderness Extremity: normal range of motion, non-tender, normal gait, no pedal edema Peripheral Pulses: radial (R): 2+, radial (L): 2+, dorsalis-pedis (R): 2+, dorsalis-pedis (L): 2+ - SKIN Integumentary: normal color, normal turgor, warm/dry - NEUROLOGIC Neurologic: grossly normal - PSYCHIATRIC Psych/Mental Status: normal mood/affect, normal thought content, oriented x 3 Progress - PLAN OF CARE/RESULTS Progress/Plan/Lab Results: Vital Signs - 8 hr 08/04/19 13:24 Temperature 98.1 F Pulse Rate 70 Respiratory Rate 22 Blood Pressure 113/77 O2 Sat by Pulse Oximetry 96 Orders Category Date Time Status CHEST-PORTABLE [RAD] Stat Exams 08/04/19 13:48 Ordered CBC WITH DIFF [HEME] Stat Lab 08/04/19 13:48 Uncollected COMPREHENSIVE METABOLIC PANEL [CHEM] Stat Lab 08/04/19 13:48 Uncollected PT [PROTIME WITH INR] [COAG] Stat Lab 08/04/19 13:49 Uncollected Patient agrees with POC rendered today. Result Diagrams: 08/04/19 15:53 08/04/19 18:15 - XRAY 1 XRAY Study: Chest Impression: See EMR Report (FINDINGS: The lungs are well expanded. The heart is not enlarged. The vessels are not distended. There are no infiltrates. No effusion identified. Mild to moderate scoliosis. IMPRESSION: No pneumonia Electronically signed by Mati Spencer 08/04/2019 2:26 PM) - CT/MRI 1 CT Study: Thorax Impression: See EMR Report (FINDINGS: Trace pleural fluid. No cardiomegaly. No aortic aneurysm or dissection. Normal opacification of the pulmonary arteries and their branches. There calcified mediastinal and hilar lymph nodes with scattered granuloma. Tiny right upper lobe groundglass infiltrates. No consolidation. No bronchiectasis. IMPRESSION: 1.Tiny right upper lobe groundglass infiltrates 2.There is evidence of a prior granulomatous infection This exam was performed using automated exposure control, adjustment of mA or kV according to patient size, and/or use of iterative reconstruction technique. Electronically signed by Mati Spencer 08/04/2019 6:24 PM) - CONSULTS/PCP/HOSPITALIST Notification #1 *Consult/PCP/Hospitalist*: Time Discussed: 20:11 Consult Disposition: Admit Departure - Departure Date of Disposition Decision: 08/04/19 Time of Disposition Decision: 20:11 DIAGNOSIS: COPD with exacerbation Pneumonia Qualifiers: Pneumonia type: due to unspecified organism Laterality: right Lung location: upper lobe of lung Qualified Code(s): J18.1 - Lobar pneumonia, unspecified organism Disposition: ADMITTED INPATIENT 09 Certified Medical Emergency: Emergent Condition: Poor Referrals and Follow-Ups: None,PCP [Primary Care Provider] - - Critical Care Note This patient required my direct & personal management of CC.: Yes Total Time (mins): 30 Critical Care Statement: This patient required my direct personal management to treat or rule out processes, the absence of which, could potentiallly result in sudden, clinically significant life or limb threatening deterioration. Attestation - Physician/ GULSHAN Attestation Patient care was provided by Advanced Practice Provider:: Yes Advanced Practice Provider:: Monica Stone Advanced Practice Provider documentation review:: The Mid-level provider documentation, treatment plan and medical decision making was reviewed by the physician who agrees with all treatment and medical decision making by the MLP. The physician spent face to face time with patient:: No Advanced Practice Provider documentation review:: Supervising physician onsite and consulted in the evaluation and care of this patient. The physician did not have a face to face encounter with the patient.
--- NOTE | 2019-08-04 14:28 | Diag Imaging Result Doc PS360 ---
EXAM: CHEST-PORTABLE HISTORY: dyspnea TECHNIQUE: Single view COMPARISON: 10/21/2018 FINDINGS: The lungs are well expanded. The heart is not enlarged. The vessels are not distended. There are no infiltrates. No effusion identified. Mild to moderate scoliosis. IMPRESSION: No pneumonia Electronically signed by Mati Spencer 08/04/2019 2:26 PM
[2019-08-04] MEDS ORDERED: DUONEB (A & A) INH ONE ×2 (15:19→18:07)
[2019-08-04] MEDS ORDERED: SOLU-MEDROL IV ONE (15:19)
[2019-08-04 16:29] LABS: BASO# 0.12 X1000 (0.0-0.2); BASO% 1.4 % (0.0-0.8); EOS# 0.99 X1000 (0.0-0.7); EOS% 11.3 % (0.0-10.0); HEMATOCRIT 42.7 % (37.0-47.0); HEMOGLOBIN 14.2 g/dL (12.0-16.0); LYMPH# 2.63 X1000 (1.2-3.4); MCHC 33.3 g/dL (33-37); MCV 96.2 FL (81-99); MONO# 0.52 X1000 (0.11-0.59); MONO% 5.9 % (1.7-9.3); MPV 10.2 FL (7.4-10.4); NEUT# 4.52 X1000 (1.4-6.5); NEUT% 51.4 % (42.2-75.2); PLT 245 X1000 (130-400); RBC 4.44 XMIL (4.2-5.4); RDW 12.8 % (11.5-14.5); WBC 8.78 X1000 (4.8-10.8)
[2019-08-04 16:42] LABS: INR 0.99; PROTIME 13.2 Seconds (11.0-16.0)
--- NOTE | 2019-08-04 18:26 | Diag Imaging Result Doc PS360 ---
EXAM: CT THORAX W/CONTRAST HISTORY: dyspnea TECHNIQUE: CT chest with intravenous contrast COMPARISON: 11/13/2018 FINDINGS: Trace pleural fluid. No cardiomegaly. No aortic aneurysm or dissection. Normal opacification of the pulmonary arteries and their branches. There calcified mediastinal and hilar lymph nodes with scattered granuloma. Tiny right upper lobe groundglass infiltrates. No consolidation. No bronchiectasis. IMPRESSION: 1.Tiny right upper lobe groundglass infiltrates 2.There is evidence of a prior granulomatous infection This exam was performed using automated exposure control, adjustment of mA or kV according to patient size, and/or use of iterative reconstruction technique. Electronically signed by Mati Spencer 08/04/2019 6:24 PM
[2019-08-04 18:55] LABS: AGAP 14; ALB/GLOB RATIO 1.5; ALKALINE PHOSPHATASE 94 U/L (32-104); BUN 7 mg/dL (8-22); CALCIUM 9.2 mg/dL (8.8-10.2); CHLORIDE 103 mmol/L (98-107); CK PROFILE 127 U/L (24-173); COSMO 275; CREATININE 0.7 mg/dL (0.5-0.9); ESTIMATED GFR > 60; GLUCOSE 117 mg/dL (70-104); GOT 22 U/L (10-30); GPT 22 U/L (10-36); POTASSIUM 3.9 mmol/L (3.5-5.1); SODIUM 138 mmol/L (136-145); TCO2 21 mmol/L (25-35); TOTAL BILIRUBIN 0.31 mg/dL (0.20-1.00); TOTAL PROTEIN 6.6 g/dL (6.3-8.3)
[2019-08-04] MEDS ORDERED: ROCEPHIN 1 GM in NS 50 ML IV ONE (19:00)
[2019-08-04] MEDS ORDERED: DESYREL PO SCH (21:00)
[2019-08-04] MEDS ORDERED: AMITIZA PO SCH (21:00)
[2019-08-04] MEDS: ATROVENT HFA INH SCH (21:00)
[2019-08-04] MEDS: KLONOPIN PO SCH (21:55)
[2019-08-04] MEDS: PEPCID PO SCH (21:56)
[2019-08-04] MEDS ORDERED: ZOFRAN IV PRN (22:41)
[2019-08-04] MEDS ORDERED: LEVAQUIN 500 MG/D5W 500 MG/100 ML IVPB IV SCH (22:41)
[2019-08-04] MEDS ORDERED: TYLENOL PO PRN (22:41)
[2019-08-04] MEDS: NS 1,000 ML IV SCH (23:30)
[2019-08-04] MEDS: LOVENOX SUBQ SCH (23:31)
[2019-08-04] MEDS: SOLU-MEDROL IV SCH (23:31)
[2019-08-05] MEDS: DUONEB (A & A) INH SCH ×3 (02:58→11:03)
[2019-08-05] MEDS: ATROVENT HFA INH SCH (03:26)
--- NOTE | 2019-08-05 06:29 | HISTORY AND PHYSICAL ---
CHIEF COMPLAINT: Cough, shortness of breath. HISTORY OF PRESENT ILLNESS: This is a 63-year-old female who comes into the emergency room with congestion, yellow sputum production, wheezing, dyspnea, orthopnea, and PND for greater than a month. She apparently saw her PCP and was started on antibiotics and prednisone but continues to have increasing symptoms. The PCP recommended her coming into the emergency room for further treatment. She denies any fevers, chills or flu-like symptoms. She did have audible wheezing. Her oxygen saturation was 97% on room air. A chest x-ray was obtained which was grossly normal. A CT was obtained which showed a tiny right upper lobe ground-glass infiltrate. She will be admitted for COPD exacerbation with possible pneumonia. PAST MEDICAL HISTORY: COPD, hypertension, GERD. PREVIOUS SURGICAL HISTORY: Left elbow surgery, bilateral rotator cuff. SOCIAL HISTORY: Smokes a little less than a pack a day, drinks alcohol occasionally, no illicit drug use. FAMILY HISTORY: History of coronary artery disease. Denies diabetes in first-degree relatives. ALLERGIES: No known drug allergies. HOME MEDICATIONS: Albuterol inhaler, two puffs q.6 h. p.r.n., Symbicort 160/4.5, two puffs inhalation b.i.d., clonazepam 1 mg p.o. at bedtime, famotidine 20 mg p.o. b.i.d., Atrovent, two puffs four times a day, lisinopril/hydrochlorothiazide 10/12.5 one p.o. daily, Amitiza 8 mcg p.o. b.i.d., Singulair 10 mg p.o. daily, ranitidine 300 mg p.o. at bedtime, trazodone 100 mg p.o. b.i.d. REVIEW OF SYSTEMS: A 14-point review of systems was conducted with the patient. Pertinent positives are listed above in the HPI. All other systems are reviewed and found to be negative. PHYSICAL EXAMINATION: VITAL SIGNS: Temperature 97.9, pulse 93, respirations 18, blood pressure 131/72, and oxygen saturation is 97% on room air. GENERAL: A pleasant 63-year-old female lying in the ER stretcher. She is in no acute distress. HEENT: The head is atraumatic an normocephalic. The pupils are equal, round, and reactive to light. Extraocular eye movement is intact. The sclerae are nonicteric. The conjunctivae are pink. The oral mucosa is moist. NECK: Supple. No JVD. No thyromegaly. The trachea is midline. No cervical lymphadenopathy. CARDIAC: S1, S2 appreciated. No murmurs, gallops, or rubs. LUNGS: Expiratory wheezing noted throughout bilateral lung farias. No rhonchi. No rales. Symmetric rise and fall with respirations. ABDOMEN: Soft, nondistended, and nontender. Bowel sounds present in all four quadrants. Normoactive. No pulsatile masses. No organomegaly. EXTREMITIES: No cyanosis, clubbing, or edema. NEUROLOGICAL: Alert and oriented x3. No focal motor deficits. Otherwise nonfocal examination. GENITOURINARY: No bladder distention. Patient voids. Otherwise deferred. DIAGNOSTIC DATA: CT shows tiny ground-glass opacity. LABORATORY DATA: CBC within normal limits. Coags within normal limits. Sodium 139, potassium 3.9, chloride 103, carbon dioxide 31, BUN 7, creatinine 0.7, glucose 117. ASSESSMENT: 1. Chronic obstructive pulmonary disease (COPD) with exacerbation. 2. Questionable pneumonia. 3. Gastroesophageal reflux disease (GERD). 4. Hypertension. PLAN: Admit the patient to the medical floor. We will give Levaquin 500 mg q.24 h. Continue antihypertensives. We will continue her daily Pepcid. Solu-Medrol 60 mg IV q.8 h. for three doses. Continue DuoNebs and other home inhalers. Further recommendations based on the patient's clinical course. Dictated by ALEX Schultz for Quinten Hutchinson MD cc: ALEX Schultz MD
[2019-08-05] MEDS: SOLU-MEDROL IV SCH ×2 (06:34→15:15)
[2019-08-05 06:48] LABS: HEMATOCRIT 36.3 % (37.0-47.0); HEMOGLOBIN 12.1 g/dL (12.0-16.0); LYMPH# 0.75 X1000 (1.2-3.4); LYMPH% 12.4 % (20.5-51.1); MCH 31.6 PG (27-31); MCHC 33.3 g/dL (33-37); MCV 94.8 FL (81-99); MONO# 0.13 X1000 (0.11-0.59); MONO% 2.1 % (1.7-9.3); MPV 10.3 FL (7.4-10.4); NEUT# 5.18 X1000 (1.4-6.5); NEUT% 85.5 % (42.2-75.2); PLT 264 X1000 (130-400); RBC 3.83 XMIL (4.2-5.4); RDW 12.5 % (11.5-14.5); WBC 6.06 X1000 (4.8-10.8)
[2019-08-05 07:25] LABS: AGAP 17; BUN 7 mg/dL (8-22); CALCIUM 9.7 mg/dL (8.8-10.2); CHLORIDE 103 mmol/L (98-107); COSMO 281; CREATININE 0.8 mg/dL (0.5-0.9); ESTIMATED GFR > 60; GLUCOSE 161 mg/dL (70-104); POTASSIUM 3.6 mmol/L (3.5-5.1); SODIUM 140 mmol/L (136-145); TCO2 20 mmol/L (25-35)
[2019-08-05 07:30] LABS: LYMPHS 13 % (21-51); MONO 2 % (1-9); SEGS 85 % (42-75)
[2019-08-05] MEDS: SYMBICORT 160/4.5 MICROGM INHALER INH SCH ×2 (07:30→21:40)
[2019-08-05] MEDS: VENTOLIN HFA INH PRN (07:45)
[2019-08-05] MEDS ORDERED: PEPCID PO SCH (09:00)
[2019-08-05] MEDS ORDERED: SINGULAIR PO SCH (09:00)
[2019-08-05] MEDS ORDERED: ROBITUSSIN PO PRN (10:58)
[2019-08-05] MEDS: TESSALON PO SCH ×2 (12:17→17:38)
[2019-08-05] MEDS: PRINZIDE 10/12.5MG PO SCH (12:17)
[2019-08-05] MEDS ORDERED: TUSSIONEX LIQUID PO ONE (14:16)
[2019-08-05] MEDS: MAXIPIME 1 GM in NS 50 ML IV SCH (17:38)
--- NOTE | 2019-08-05 20:21 | PROGRESS NOTE ---
DATE: 08/05/2019 SUBJECTIVE: The patient has been having persistent dry hacking cough. OBJECTIVE: Vital signs: Temperature 97.9 degrees, blood pressure 120/72, heart rate 89, respirations 14, O2 saturation 95% on room air. General: This is a chronically ill-appearing elderly female sitting up in bed in no acute distress. Heart: S1, S2 normal. Regular rate and rhythm. Lungs: Mild expiratory wheezes bilaterally. Abdomen: Positive bowel sounds. Soft, nontender, nondistended. Extremities: No edema. No cyanosis. Neuro: The patient is alert and oriented x3. LABS: Hemoglobin 12, hematocrit 36, platelets 264,000. Sodium 140, potassium 3.6, chloride 103, CO2 20, glucose 161. CT chest reveals tiny right upper lobe ground-glass infiltrates. ASSESSMENT AND PLAN: 1. Possible right upper lobe pneumonia. We will adjust the patient's antibiotics. We will add incentive spirometry. We will also check a procalcitonin level. The patient is currently being ruled out for COVID 19. 2. Chronic obstructive pulmonary disease exacerbation. Continue on bronchodilator therapy and antibiotics. 3. Hypertension. Continue on the current antihypertensive regimen. 4. Deep vein thrombosis prophylaxis. Continue on Lovenox. cc: Maddison Serrano MD MTDWendy
[2019-08-05] MEDS: TUSSIONEX LIQUID PO SCH (21:12)
[2019-08-05] MEDS: SINGULAIR PO SCH (21:12)
[2019-08-05] MEDS: DESYREL PO SCH (21:12)
[2019-08-05] MEDS: ZYVOX PO SCH (21:12)
[2019-08-05] MEDS: KLONOPIN PO SCH (21:12)
[2019-08-05] MEDS: LOVENOX SUBQ SCH (21:12)
[2019-08-05] MEDS: ZANAFLEX PO SCH (21:12)
[2019-08-05] MEDS: PEPCID PO SCH (21:12)
[2019-08-05] MEDS: NS 1,000 ML IV SCH (21:16)
[2019-08-05] MEDS: COMBIVENT RESPIMAT INHALER INH SCH (21:40)
[2019-08-06] MEDS: COMBIVENT RESPIMAT INHALER INH SCH ×3 (02:10→15:35)
[2019-08-06] MEDS: MAXIPIME 1 GM in NS 50 ML IV SCH ×2 (06:06→17:40)
[2019-08-06] MEDS: LOVENOX SUBQ SCH ×2 (06:30→20:34)
[2019-08-06 06:56] LABS: BASO# 0.02 X1000 (0.0-0.2); BASO% 0.1 % (0.0-0.8); HEMATOCRIT 34.9 % (37.0-47.0); HEMOGLOBIN 11.6 g/dL (12.0-16.0); IMM GRAN# 0.03 X1000 (0.0-0.04); IMM GRAN% 0.2 % (0.0-0.5); LYMPH# 2.03 X1000 (1.2-3.4); LYMPH% 13.3 % (20.5-51.1); MCH 31.9 PG (27-31); MCHC 33.2 g/dL (33-37); MCV 95.9 FL (81-99); MONO# 1.06 X1000 (0.11-0.59); MPV 10.4 FL (7.4-10.4); NEUT# 12.09 X1000 (1.4-6.5); NEUT% 79.4 % (42.2-75.2); PLT 247 X1000 (130-400); RBC 3.64 XMIL (4.2-5.4); RDW 13.1 % (11.5-14.5); WBC 15.23 X1000 (4.8-10.8)
[2019-08-06 07:10] LABS: AGAP 13; BUN 10 mg/dL (8-22); CALCIUM 9.4 mg/dL (8.8-10.2); CHLORIDE 107 mmol/L (98-107); COSMO 283; CREATININE 0.7 mg/dL (0.5-0.9); ESTIMATED GFR > 60; GLUCOSE 116 mg/dL (70-104); POTASSIUM 4.2 mmol/L (3.5-5.1); SODIUM 142 mmol/L (136-145); TCO2 22 mmol/L (25-35)
[2019-08-06] MEDS: SYMBICORT 160/4.5 MICROGM INHALER INH SCH ×2 (09:47→19:49)
[2019-08-06] MEDS: VENTOLIN HFA INH PRN ×2 (09:48→15:28)
[2019-08-06] MEDS: ZYVOX PO SCH ×2 (10:22→20:33)
[2019-08-06] MEDS: TUSSIONEX LIQUID PO SCH ×2 (10:22→20:34)
[2019-08-06] MEDS: PRINZIDE 10/12.5MG PO SCH (10:22)
[2019-08-06] MEDS: ZANAFLEX PO SCH ×3 (10:22→20:33)
[2019-08-06] MEDS: TESSALON PO SCH ×3 (10:22→17:40)
--- NOTE | 2019-08-06 13:49 | PROGRESS NOTE ---
DATE: 08/06/2019 SUBJECTIVE: The patient is resting comfortably. She states that she feels much better. She is still having coughing spells, but she says they are less severe. She is afebrile. No acute events noted overnight. OBJECTIVE: Vital Signs: Temperature 98.3 degrees, blood pressure 143/85, heart rate 64, respirations 20, O2 saturation 95% on room air. General: This is an elderly female, sitting up in bed in no acute distress. Heart: S1, S2 normal. Regular rate and rhythm. Lungs: Equal air entry bilaterally. No wheezing. No rales. Abdomen: Positive bowel sounds. Soft, nontender, nondistended. Extremities: No edema, no cyanosis. Neurologic: The patient is alert and oriented x3. LABORATORY DATA: White blood cell count 15, hemoglobin 11, hematocrit 34, platelets 247,000. Sodium 142, potassium 4.2, chloride 107, CO2 22, BUN 10, creatinine 0.7, glucose 116. ASSESSMENT AND PLAN: 1. Suspected right upper lobe pneumonia. The patient is slowly improving. She is not requiring supplemental oxygen and she states that she feels much better today. Will continue on the current IV antibiotic regimen. Continue with bronchodilator therapy and incentive spirometry. The patient is currently being ruled out for Coronavirus Disease 2019. 2. Chronic obstructive pulmonary disease exacerbation. Improved. Continue on the current treatment regimen. 3. Hypertension. Stable. 4. Deep vein thrombosis prophylaxis. Continue on Lovenox. 5. Disposition. If the patient continues to improve, we will likely transition her to oral antibiotic therapy and discharge her home tomorrow. cc: Maddison Serrano MD
[2019-08-06 14:42] LABS: I-STAT CREATININE 0.8 mg/dL (0.6-1.3)
[2019-08-06] MEDS: SINGULAIR PO SCH (20:33)
[2019-08-06] MEDS: DESYREL PO SCH (20:33)
[2019-08-06] MEDS: KLONOPIN PO SCH (20:33)
[2019-08-06] MEDS: CULTURELLE PO SCH (20:33)
[2019-08-06] MEDS: PEPCID PO SCH (20:33)
[2019-08-07] MEDS: LOVENOX SUBQ SCH (00:43)
[2019-08-07] MEDS: NS 1,000 ML IV SCH (02:46)
[2019-08-07] MEDS: MAXIPIME 1 GM in NS 50 ML IV SCH (05:14)
[2019-08-07 05:46] LABS: BASO# 0.02 X1000 (0.0-0.2); BASO% 0.2 % (0.0-0.8); EOS# 0.04 X1000 (0.0-0.7); EOS% 0.4 % (0.0-10.0); HEMATOCRIT 36.7 % (37.0-47.0); HEMOGLOBIN 12.2 g/dL (12.0-16.0); IMM GRAN# 0.02 X1000 (0.0-0.04); IMM GRAN% 0.2 % (0.0-0.5); LYMPH# 2.22 X1000 (1.2-3.4); LYMPH% 23.4 % (20.5-51.1); MCH 31.7 PG (27-31); MCHC 33.2 g/dL (33-37); MCV 95.3 FL (81-99); MONO# 0.96 X1000 (0.11-0.59); MONO% 10.1 % (1.7-9.3); MPV 10.4 FL (7.4-10.4); NEUT# 6.22 X1000 (1.4-6.5); NEUT% 65.7 % (42.2-75.2); PLT 242 X1000 (130-400); RBC 3.85 XMIL (4.2-5.4); WBC 9.48 X1000 (4.8-10.8)
[2019-08-07 06:05] LABS: AGAP 13; BUN 9 mg/dL (8-22); CALCIUM 8.7 mg/dL (8.8-10.2); CHLORIDE 101 mmol/L (98-107); COSMO 273; CREATININE 0.7 mg/dL (0.5-0.9); ESTIMATED GFR > 60; GLUCOSE 111 mg/dL (70-104); POTASSIUM 3.8 mmol/L (3.5-5.1); SODIUM 137 mmol/L (136-145); TCO2 23 mmol/L (25-35)
[2019-08-07] MEDS: SYMBICORT 160/4.5 MICROGM INHALER INH SCH (07:43)
[2019-08-07] MEDS: VENTOLIN HFA INH PRN (07:44)
[2019-08-07] MEDS: CULTURELLE PO SCH (09:13)
[2019-08-07] MEDS: TUSSIONEX LIQUID PO SCH (09:13)
[2019-08-07] MEDS: ZYVOX PO SCH (09:14)
[2019-08-07] MEDS: TESSALON PO SCH (09:14)
[2019-08-07] MEDS: PRINZIDE 10/12.5MG PO SCH (09:14)
[2019-08-07] MEDS: ZANAFLEX PO SCH (09:14)
[2019-08-07 12:11] VITALS: BP 107/69
--- NOTE | 2019-08-13 14:46 | DISCHARGE SUMMARY ---
ADMISSION DATE: 08/04/2019 DISCHARGE DATE: 08/07/2019 FINAL DISCHARGE DIAGNOSES: 1. Right upper lobe pneumonia. 2. Chronic obstructive pulmonary disease exacerbation. 3. Hypertension. HOSPITAL COURSE: Ms Hernandez is a 63-year-old female with a history of hypertension, COPD, who presented to the ER with shortness of breath. A chest CT was done on admission that revealed right upper lobe ground-glass infiltrates. There was concern about COVID-19 virus, so the patient was placed on isolation and the COVID-19 test was given. The patient was treated with IV steroids, bronchodilator therapy, and antibiotics. The patient improved clinically, however, the results for the COVID-2019 tests were not available at the time of discharge. The patient was discharged with instructions to continue to self isolate until the results were available and called in to her. DISCHARGE MEDICATIONS: 1. Lactobacillus 1 tablet oral twice a day. 2. Symbicort 2 puffs inhaled twice a day. 3. Augmentin 875-125 1 tab oral twice a day x7 days. 4. Tessalon Perles 100 mg oral 3 times a day p.r.n. for cough. 5. Lisinopril hydrochlorothiazide 1 tab oral daily. 6. Albuterol inhaler 2 puffs inhaled every 6 hours p.r.n. 7. Klonopin 1 mg oral at bedtime. 8. Singulair 10 mg oral at bedtime. 9. Famotidine 40 mg oral at bedtime. 10. Trazodone 200 mg oral at bedtime. 11. Zanaflex 4 mg oral 3 times a day. DISCHARGE DIET: Regular diet. ACTIVITY: As tolerated. FOLLOWUP INSTRUCTIONS: The patient will need to follow up with her primary care physician in 1 week. The patient will also need to follow up with Dr. Getachew Boss as scheduled by his clinic. cc: Maddison Serrano MD
== END 2019-08-07 14:54 | disposition home or self-care (01) | DRG 190 ==
LOC: ED 12:15 → 3N 22:33 → SUATTDRO 22:33 → 4N 08-05 16:21
PROVIDERS: ATTEND Internal Medicine